=== PATIENT | male | born 1965 | race Caucasian/White ===

== ENCOUNTER 2016-11-25 09:37 | Outpatient (CLI) | payer MEDICAID ==
--- NOTE | 2016-11-25 12:21 | XRAY Report ---
THREE-VIEW BILATERAL FEET: 11/25/2016 CLINICAL INDICATION: Pain. FINDINGS: AP, lateral, oblique views of the bilateral feet demonstrate mild left and moderate right osteoarthritis, with joint space narrowing and osteophytes worst at the right 1st metatarsophalangeal joint. There is no evidence of acute fracture or dislocation. No radiopaque foreign body is seen i n the soft tissues. Plantar and posterior calcaneal spurring is present. IMPRESSION: RIGHT WORSE THAN LEFT OSTEOARTHRITIS. JOB #: [id number] EXT JOB #:[id number]
== END 2016-11-25 09:38 | disposition home or self-care (01) ==
LOC: DI.S 09:37
PROVIDERS: ATTEND Nurse Practitioner Family
DX: M19.072 Primary osteoarthritis, left ankle and foot (principal); M19.071 Primary osteoarthritis, right ankle and foot

== ENCOUNTER 2018-05-07 13:31 | Outpatient (CLI) | payer MEDICAID ==
--- NOTE | 2018-05-09 00:42 | XRAY Report ---
Reason: SHOULDER PAIN, RIGHT Procedure Date: 05/07/2018 Accession Number: [id number] / [id number] Procedure: XRN - Shoulder 2 View RT CPT Code: FULL RESULT: EXAM: RIGHT SHOULDER RADIOGRAPHY EXAM DATE: 05/07/2018 01:47 PM. CLINICAL HISTORY: SHOULDER PAIN, RIGHT. COMPARISON: RT SHOULDER 04/08/2008 8:46 AM. TECHNIQUE: 3 views. FINDINGS: Bones: Normal. No fracture or bone lesion. Joints: The glenohumeral and acromioclavicular joints are normal. Soft tissues: The visualized hemithorax is unremarkable. No soft tissue swelling. IMPRESSION: Normal shoulder radiography. [facility]
== END 2018-05-07 13:32 | disposition home or self-care (01) ==
LOC: DI.N 13:31
PROVIDERS: ATTEND Nurse Practitioner Family
DX: M25.511 Pain in right shoulder (principal)

== ENCOUNTER 2020-07-03 08:24 | Outpatient (CLI) | payer MEDICAID ==
[2020-07-03 14:39] LABS: BASOPHILS # (AUTO) 0.1 10^3/uL (0.0-0.1); BASOPHILS % (AUTO) 0.6 %; EOSINOPHILS # (AUTO) 0.4 10^3/uL (0.0-0.7); EOSINOPHILS % (AUTO) 5.1 %; HCT - HEMATOCRIT 47.2 % (42.0-52.0); HGB - HEMOGLOBIN 15.6 g/dL (14.0-18.0); LYMPHOCYTES # (AUTO) 3.1 10^3/uL (1.5-3.5); LYMPHOCYTES % (AUTO) 36.5 %; MEAN CORPUSCULAR HEMOGLOBIN 31.6 pg (27.0-31.0); MEAN CORPUSCULAR HGB CONC 33.1 g/dL (32.0-36.0); MEAN CORPUSCULAR VOLUME 95.5 fL (80.0-94.0); MEAN PLATELET VOLUME 11.2 fL (7.4-11.4); MONOCYTES # (AUTO) 0.7 10^3/uL (0.0-1.0); MONOCYTES % (AUTO) 8.8 %; NEUTROPHILS # (AUTO) 4.1 10^3/uL (1.5-6.6); NEUTROPHILS % (AUTO) 48.6 %; PLT - PLATELET COUNT 246 10^3/uL (130-450); RED BLOOD COUNT 4.94 10^6/uL (4.70-6.10); RED CELL DISTRIBUTION WIDTH 11.8 % (12.0-15.0); WHITE BLOOD COUNT 8.4 x10^3/uL (4.8-10.8)
[2020-07-03 14:56] LABS: ALBUMIN 4.5 g/dL (3.2-5.5); ALBUMIN/GLOBULIN RATIO 1.3 (1.0-2.2); ALKALINE PHOSPHATASE 69 IU/L (42-121); ALT ALANINE AMINOTRANSFERASE 37 IU/L (10-60); AST ASPARTATE AMINOTRANSFERASE 21 IU/L (10-42); BILIRUBIN,TOTAL 1.7 mg/dL (0.2-1.0); BUN - BLOOD UREA NITROGEN 29 mg/dL (6-20); CALCIUM 9.6 mg/dL (8.5-10.3); CARBON DIOXIDE - CO2 27 mmol/L (21-32); CHLORIDE 100 mmol/L (101-111); CHOL/HDL RATIO 7.7 (<5.0); CHOLESTEROL 239 mg/dL; CREATININE 0.9 mg/dL (0.6-1.2); GFR - MDRD 88 (>89); GLUCOSE 113 mg/dL (70-100); HDL CHOLESTEROL 31 mg/dL; LDL CHOLESTEROL,CALCULATED 168 mg/dL; LDL/HDL RATIO 5.4 (<3.6); POTASSIUM 3.4 mmol/L (3.5-5.0); SODIUM 137 mmol/L (135-145); TRIGLYCERIDES 202 mg/dL; VLDL CHOLESTEROL 40 mg/dL
[2020-07-03 15:29] LABS: THYROID STIMULATING HORMONE 2.58 uIU/mL (0.34-5.60)
== END 2020-07-03 08:25 | disposition home or self-care (01) ==
LOC: LAB.S 08:24
PROVIDERS: ATTEND Physician Assistant
DX: I10 Essential (primary) hypertension (principal); E66.9 Obesity, unspecified; E78.5 Hyperlipidemia, unspecified; Z72.89 Other problems related to lifestyle
CPT/HCPCS: 36415; 80053; 80061; 83721; 84443; 85025

== ENCOUNTER 2021-11-06 08:54 | Outpatient (CLI) | payer MEDICAID ==
[2021-11-06 09:17] LABS: BASOPHILS # (AUTO) 0.1 10^3/uL (0.0-0.1); EOSINOPHILS # (AUTO) 0.3 10^3/uL (0.0-0.7); EOSINOPHILS % (AUTO) 3.9 %; HCT - HEMATOCRIT 44.2 % (42.0-52.0); HGB - HEMOGLOBIN 15.3 g/dL (14.0-18.0); LYMPHOCYTES # (AUTO) 2.3 10^3/uL (1.5-3.5); LYMPHOCYTES % (AUTO) 31.7 %; MEAN CORPUSCULAR HEMOGLOBIN 32.6 pg (27.0-31.0); MEAN CORPUSCULAR HGB CONC 34.6 g/dL (32.0-36.0); MEAN PLATELET VOLUME 10.2 fL (7.4-11.4); MONOCYTES # (AUTO) 0.6 10^3/uL (0.0-1.0); MONOCYTES % (AUTO) 8.4 %; NEUTROPHILS % (AUTO) 54.7 %; PLT - PLATELET COUNT 259 10^3/uL (130-450); RED CELL DISTRIBUTION WIDTH 11.4 % (12.0-15.0); WHITE BLOOD COUNT 7.3 x10^3/uL (4.8-10.8)
[2021-11-06 09:32] LABS: ALBUMIN 4.3 g/dL (3.2-5.5); ALBUMIN/GLOBULIN RATIO 1.2 (1.0-2.2); ALKALINE PHOSPHATASE 60 IU/L (42-121); ALT ALANINE AMINOTRANSFERASE 61 IU/L (10-60); AST ASPARTATE AMINOTRANSFERASE 35 IU/L (10-42); BILIRUBIN,TOTAL 1.3 mg/dL (0.2-1.0); BUN - BLOOD UREA NITROGEN 17 mg/dL (6-20); CALCIUM 9.7 mg/dL (8.5-10.3); CARBON DIOXIDE - CO2 29 mmol/L (21-32); CHLORIDE 101 mmol/L (101-111); CHOL/HDL RATIO 5.7 (<5.0); CHOLESTEROL 181 mg/dL; CREATININE 0.8 mg/dL (0.6-1.2); GAMMA GLUTAMYL TRANSPEPTIDASE 33 IU/L (8-55); GFR - MDRD 100 (>89); GLUCOSE 118 mg/dL (70-100); HDL CHOLESTEROL 32 mg/dL; LDL CHOLESTEROL,CALCULATED 120 mg/dL; LDL/HDL RATIO 3.8 (<3.6); POTASSIUM 3.6 mmol/L (3.5-5.0); SODIUM 139 mmol/L (135-145); TOTAL PROTEIN 7.9 g/dL (6.7-8.2); TRIGLYCERIDES 144 mg/dL; URIC ACID 8.2 mg/dL (2.6-7.2); VLDL CHOLESTEROL 29 mg/dL
[2021-11-06 14:30] LABS: ESTIMATED AVERAGE GLUCOSE 123 mg/dL (70-100); HEMOGLOBIN A1c% 5.9 % (4.27-6.07)
== END 2021-11-06 08:55 | disposition home or self-care (01) ==
LOC: LAB 08:54
PROVIDERS: ATTEND Nurse Practitioner
DX: I10 Essential (primary) hypertension (principal); E78.5 Hyperlipidemia, unspecified; F10.10 Alcohol abuse, uncomplicated; R73.01 Impaired fasting glucose; M10.9 Gout, unspecified
CPT/HCPCS: 36415; 80053; 80061; 82977; 83036; 83721; 84550; 85025

== ENCOUNTER 2022-04-28 09:46 | Outpatient (CLI) | payer MEDICAID ==
--- NOTE | 2022-04-28 11:17 | XRAY Report ---
PROCEDURE: Thoracic Spine 3 View INDICATIONS: THORACIC BACK PAIN TECHNIQUE: 3 views of the thoracic spine were acquired. COMPARISON: None. FINDINGS: Bones: No fractures or dislocations. No suspicious bony lesions. Prominent lateral bridging osteoph ytes throughout the thoracic spine. Mild anterior disc degeneration in the upper thoracic spine. 12 p airs of ribs are noted, and appear intact where visualized. Soft tissues: No paravertebral stripe thickening. IMPRESSION: 1. Mild upper thoracic disc degeneration and moderate endplate spurring throughout the thoracic spine . Reviewed by: Tiffany Zepeda MD on 04/28/2022 11:16 AM PST Approved by: Tiffany Zepeda MD on 04/28/2022 11:16 AM PST Station ID: [id number]
== END 2022-04-28 09:47 | disposition home or self-care (01) ==
LOC: DI 09:46
PROVIDERS: ATTEND Nurse Practitioner
DX: M51.34 Other intervertebral disc degeneration, thoracic region (principal)

== ENCOUNTER 2022-06-09 13:21 | Outpatient (CLI) | payer MEDICAID | END 2022-06-09 13:22 | disposition home or self-care (01) | LOC: MAC.MOP 13:21 | PROVIDERS: ATTEND Nurse Practitioner | DX: R00.2 Palpitations (principal) | CPT/HCPCS: 93246 ==

== ENCOUNTER 2022-06-19 08:53 | Outpatient (CLI) | payer MEDICAID | END 2022-06-19 08:54 | disposition home or self-care (01) | LOC: LAB 08:53 | PROVIDERS: ATTEND Nurse Practitioner | DX: I10 Essential (primary) hypertension (principal); Z13.220 Encounter for screening for lipoid disorders; R73.03 Prediabetes; Z12.5 Encounter for screening for malignant neoplasm of prostate; R53.83 Other fatigue; M10.9 Gout, unspecified | CPT/HCPCS: 80053; 80061; 83036; 83721; 84153; 84443; 84550; 85025 ==

== ENCOUNTER 2022-07-03 10:30 | Outpatient (CLI) | payer MEDICAID | END 2022-07-03 10:31 | disposition home or self-care (01) | LOC: MAC.INF 10:30 | PROVIDERS: ATTEND Nurse Practitioner | DX: R00.2 Palpitations (principal); I49.1 Atrial premature depolarization; I49.3 Ventricular premature depolarization | CPT/HCPCS: 93248 ==

== ENCOUNTER 2023-09-28 07:54 | Outpatient (CLI) | payer MEDICAID ==
[2023-09-28 14:44] LABS: BASOPHILS % (AUTO) 0.6 %; EOSINOPHILS # (AUTO) 0.4 10^3/uL (0.0-0.7); HCT - HEMATOCRIT 42.1 % (42.0-52.0); HGB - HEMOGLOBIN 14.1 g/dL (14.0-18.0); LYMPHOCYTES # (AUTO) 2.4 10^3/uL (1.5-3.5); LYMPHOCYTES % (AUTO) 37.4 %; MEAN CORPUSCULAR HEMOGLOBIN 31.2 pg (27.0-31.0); MEAN CORPUSCULAR HGB CONC 33.5 g/dL (32.0-36.0); MEAN CORPUSCULAR VOLUME 93.1 fL (80.0-94.0); MONOCYTES # (AUTO) 0.6 10^3/uL (0.0-1.0); MONOCYTES % (AUTO) 9.6 %; NEUTROPHILS # (AUTO) 2.9 10^3/uL (1.5-6.6); NEUTROPHILS % (AUTO) 45.9 %; PLT - PLATELET COUNT 199 10^3/uL (130-450); RED BLOOD COUNT 4.52 10^6/uL (4.70-6.10); WHITE BLOOD COUNT 6.3 x10^3/uL (4.8-10.8)
[2023-09-28 14:45] LABS: RED CELL DISTRIBUTION WIDTH 12.7 % (12.0-15.0)
[2023-09-28 14:56] LABS: ALBUMIN 4.3 g/dL (3.2-5.5); ALBUMIN/GLOBULIN RATIO 1.4 (1.0-2.2); ALKALINE PHOSPHATASE 57 IU/L (42-121); ALT ALANINE AMINOTRANSFERASE 38 IU/L (10-60); AST ASPARTATE AMINOTRANSFERASE 28 IU/L (10-42); BUN - BLOOD UREA NITROGEN 19 mg/dL (6-20); CALCIUM 9.8 mg/dL (8.5-10.3); CARBON DIOXIDE - CO2 30 mmol/L (21-32); CHLORIDE 100 mmol/L (101-111); CHOL/HDL RATIO 3.9 (<5.0); CHOLESTEROL 138 mg/dL; CREATININE 0.8 mg/dL (0.6-1.3); GFR - MDRD 99 (>89); GLUCOSE 130 mg/dL (74-104); HDL CHOLESTEROL 35 mg/dL; LDL CHOLESTEROL,CALCULATED 32 mg/dL; LDL/HDL RATIO 0.9 (<3.6); POTASSIUM 3.7 mmol/L (3.5-4.5); SODIUM 137 mmol/L (135-145); TOTAL PROTEIN 7.4 g/dL (6.4-8.9); TRIGLYCERIDES 353 mg/dL (48-352); URIC ACID 10.4 mg/dL (4.4-7.6); VLDL CHOLESTEROL 71 mg/dL
[2023-09-28 20:40] LABS: ESTIMATED AVERAGE GLUCOSE 120 mg/dL (70-100); HEMOGLOBIN A1c% 5.8 % (4.27-6.07)
== END 2023-09-28 07:55 | disposition home or self-care (01) ==
LOC: LAB.S 07:54
PROVIDERS: ATTEND Nurse Practitioner
DX: I10 Essential (primary) hypertension (principal); E78.5 Hyperlipidemia, unspecified; Z12.11 Encounter for screening for malignant neoplasm of colon; R73.01 Impaired fasting glucose; M10.9 Gout, unspecified
CPT/HCPCS: 36415; 80053; 80061; 83036; 83721; 84550; 85025